=== PATIENT | male | born 1960 | race African-American/Black ===

== ENCOUNTER 2016-09-06 11:21 | Emergency (ER) | payer OTHER ==
--- NOTE | ~2016-09-06 | CR127 ---
[facility] A Service of [facility] & [facility] RADIOLOGY TEXT RESULTS PATIENT: RONALD MELCHOR LOCATION: CFTX : 56 UNIT #: [id number] AGE: [address]: Felipa Arias SEX: M ORDER DR: [id number] [facility] [address] [place], [place] [address] [id number] E MR#: [id number] Acc #: [id number] NAME: RONALD MELCHOR : 1960 SEX: M STUDY DATE/TIME: UNIT: CFTX ROOM: STUDY DESCRIPTION: CR Foot Complete Min 3 View Rt Attending Physician: Felipa Arias Pa-C Ordering Physician: Ed Stevie Davis M.D. Primary Care Physician: [facility] MEDICAL IMAGING REPORT This report is preliminary unless electronic signature is present EXAM Right foot 3 views 09/06/2016 1038 hours HISTORY Patient complains of lateral foot and ankle pain and swelling after stepping in a hole yesterday. COMPARISON None FINDINGS AP, lateral and oblique views demonstrate overall normal bone density. There is no foot fracture or dislocation. IMPRESSION Negative right foot. Dictated by... Sydni Jose M.D. THIS IS AN ELECTRONICALLY VERIFIED REPORT Sydni Jose M.D. at 09/06/2016 1:00 PM SMDhaval/sondra TD: 09/06/2016 12:42 JOB #: [id number] MEDICAL IMAGING REPORT Page 1 of 1 COPY
--- NOTE | ~2016-09-06 | CR21 ---
[facility] A Service of [facility] & [facility] RADIOLOGY TEXT RESULTS PATIENT: RONALD MELCHOR LOCATION: CFTX : 56 UNIT #: [id number] AGE: [address]: Felipa Arias SEX: M ORDER DR: [id number] [facility] [address] [place], [place] [address] [id number] E MR#: [id number] Acc #: [id number] NAME: RONALD MELCHOR : 1960 SEX: M STUDY DATE/TIME: 09/06/2016 10:39 UNIT: [facility] ROOM: STUDY DESCRIPTION: CR Ankle Min 3 Views Rt Attending Physician: Felipa Arias Pa-C Ordering Physician: Ed Stevie Davis M.D. [facility] Phys[facility] REPORT This report is preliminary unless electronic signature is present EXAM Right ankle, 3 views, 09/06/2016, 1039 hours. CLINICAL HISTORY Patient complains of lateral foot and ankle pain and swelling since stepping in a hole yesterday. COMPARISON None FINDINGS AP, lateral, and oblique views demonstrate lateral soft tissue swelling with no fracture, dislocation, or disruption of the ankle mortise. IMPRESSION Lateral soft tissue swelling with no fracture or dislocation. Dictated by... Sydni Jose M.D. THIS IS AN ELECTRONICALLY VERIFIED REPORT Sydni Jose M.D. at 09/06/2016 1:00 PM ESPERANZA/demarcus TD: 09/06/2016 12:16 JOB #: [id number] MEDICAL IMAGING REPORT Page 1 of 1 COPY
[~2016-09-06 11:21] MED LIST: ALPHAGAN P5 ML OU; AMLODIPINE BESY10 MG PO; ANUSOL-HC SUPP25 M1 PR; AZITHROMYCIN250 MG PO; BACTRIM DS TABL1 TA1 PO; BRIMONIDINE TART5 ML OU; CIPRO250 MG PO; COLACE PO; COSOPT EYE DROPS5 ML OU; COSOPT OU; FLEXERIL10 M1 PO; FLOMAX0.4 M1 PO; GLUCOPHAGE500 MG PO; HYDROCODON-ACE1 EAC7 PO; LIPITOR PO; LISINOPRIL20 MG PO; LORTAB 7.5-5001 TAB PO; METFORMIN HCL500 M1 PO; MOUTHWASH180 ML MM; NORVASC10 MG PO; PERCOCET 51 UDTAB 5/ PO; PROZAC40 MG PO; PYRIDIUM100 MG PO; REMERON15 MG PO; RISPERDAL3 MG PO; SIMVASTATIN10 MG PO; TRAVATAN2.5 ML OU; ZESTRIL10 MG PO
== END 2016-09-06 12:15 | disposition home or self-care (01) ==
LOC: CFTX 11:21
DX: S93.421A Sprain of deltoid ligament of right ankle, initial encounter (principal); E11.9 Type 2 diabetes mellitus without complications; I10 Essential (primary) hypertension; B19.20 Unspecified viral hepatitis C without hepatic coma; F31.9 Bipolar disorder, unspecified; W21.31XA Struck by shoe cleats, initial encounter; Y92.009 Unspecified place in unspecified non-institutional (private) residence as the place of occurrence of the external cause; Z88.8 Allergy status to other drugs, medicaments and biological substances
CPT/HCPCS: 29540; 73610; 73630; 99283

== ENCOUNTER 2016-11-04 22:16 | Emergency (ER) | payer OTHER | END 2016-11-05 02:30 | disposition home or self-care (01) | LOC: CED 22:16 | DX: R21 Rash and other nonspecific skin eruption (principal); B19.20 Unspecified viral hepatitis C without hepatic coma; I10 Essential (primary) hypertension; E11.9 Type 2 diabetes mellitus without complications; F31.9 Bipolar disorder, unspecified; E78.5 Hyperlipidemia, unspecified; Z88.8 Allergy status to other drugs, medicaments and biological substances | CPT/HCPCS: 99282 ==